=== PATIENT | female | born 1975 | race Two or more races ===

== ENCOUNTER 2018-10-02 08:37 | Emergency (ER) | payer OTHER ==
[~2018-10-02] VITALS: Ht 167.6 cm; Wt 86.6 kg
[2018-10-02 08:45] VITALS: Ht 167.6 cm; Wt 86.6 kg
[2018-10-02 09:45] LABS: BASOPHIL % 0.5 % (0-2); PLATELET COUNT 280 x10^3mcL (130-400)
[2018-10-02 09:46] LABS: RED CELL DISTRIBUTION WIDTH 16.2 % (11.5-14.5)
[2018-10-02 09:48] LABS: CALCIUM 8.4 mg/dL (8.5-10.1); CARBON DIOXIDE 27.1 mmol/L (21-32); CHLORIDE SERUM 104 mmol/L (98-107); CREATININE SERUM 0.9 mg/dL (0.6-1.0); GFR1 > 60 mL/min; GLUCOSE SERUM 87 mg/dL (74-106); POTASSIUM SERUM 3.7 mmol/L (3.5-5.1); SODIUM SERUM 137 mmol/L (136-145)
[2018-10-02 09:53] LABS: ALKALINE PHOSPHATASE 34 U/L (46-116); ALT/SGPT 14 U/L (14-59); AST/SGOT 12 U/L (15-37); BILIRUBIN TOTAL 0.2 mg/dL (0.20-1.00); LIPASE 148 IU/L (73-393); TOTAL PROTEIN, SERUM 7.8 g/dL (6.4-8.2)
[2018-10-02 09:54] LABS: ALBUMIN 3.3 g/dL (3.4-5.0)
[2018-10-02 10:07] LABS: UA SPECIFIC GRAVITY 1.015 (1.005-1.035); microscopic required? YES; urine erythrocyte TRACE (NEGATIVE)
[2018-10-02 13:17] VITALS: BP 123/79
== END 2018-10-02 13:17 | disposition home or self-care (01) ==
LOC: ED 08:37
PROVIDERS: Emergency Medicine
DX: B96.89 Other specified bacterial agents as the cause of diseases classified elsewhere (principal); R10.9 Unspecified abdominal pain; Z90.710 Acquired absence of both cervix and uterus; Z98.890 Other specified postprocedural states
CPT/HCPCS: 85378; J1885; J2270; J2405; J7030; Q0092; Q9967